=== PATIENT | male | born 1970 | race Caucasian/White ===

== ENCOUNTER 2019-08-29 08:02 | Emergency (ER) | payer OTHER, SELFPAY ==
[2019-08-29 08:13] VITALS: BP 148/85; PULSE 95; RESP 16; TEMP 35.9; O2SAT 99
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
== END 2019-08-29 08:41 | disposition home or self-care (01) ==
PROVIDERS: Emergency Provider Nurse Practitioner Family
DX: S50.11XA Contusion of right forearm, initial encounter (principal); X58.XXXA Exposure to other specified factors, initial encounter; F17.210 Nicotine dependence, cigarettes, uncomplicated
CPT/HCPCS: 99212; G0463

== ENCOUNTER 2024-12-31 08:40 | Emergency (ER) | payer OTHER, SELFPAY ==
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
[2024-12-31 08:46] VITALS: BP 132/91; PULSE 98; RESP 22; TEMP 36.4; O2SAT 100
--- NOTE | 2024-12-31 08:50 | ECG_ITS ---
Test Date: 2024-12-31 08:55:48 Measurements Intervals [place] Rate: 97 P: 56 W[place]: 143 QRS: 32 QRSD: 101 T: 56 QT: 357 QTc: 454 Interpretive Statements SINUS RHYTHM No previous ECG available for comparison Electronically Signed On 12-31-2024 12:52:34 CDT by Charlie Arora M.D.
[2024-12-31 08:57] VITALS: RESP 23
[2024-12-31 09:06] LABS: Hematocrit 44.8 % (42.0-52.0); Hemoglobin 15.4 g/dL (14.0-18.0); Immature Granulocyte Percent A 0.3 % (0-0.5); Lymphocytes Absolute Auto 0.96 K/mm3 (0.9-3.2); Mean Corpuscular HGB Conc 34.4 g/dl (32-36); Mean Corpuscular Hemoglobin 34.1 pg (26-34); Mean Corpuscular Volume 99.3 fl (80-100); Nucleated Red Blood Cells Absolute Auto 0.000 K/mm3 (0.0-0.012); Nucleated Red Blood Cells Perc 0.0 % (0.0-0.2); Platelet Count Result 214 k/mm3 (150-375); Red Blood Count 4.51 M/mm3 (4.6-6.20); White Blood Count 6.5 K/mm3 (4.5-10.0)
[2024-12-31 09:16] LABS: Alanine Aminotransferase 29 U/L (6-50); Albumin Level 4.1 g/dL (3.5-5.1); Alkaline Phosphatase 70 U/L (38-126); Anion Gap 9 mmol/L (4-12); Aspartate Amino Transferase 31 U/L (17-59); Bilirubin,Total 0.5 mg/dL (0.2-1.3); Blood Urea Nitrogen 12 mg/dL (9-20); Calcium 8.9 mg/dL (8.4-10.2); Carbon Dioxide 25 mmol/L (22-30); Chloride 104 mmol/L (98-107); Estimated CRCL calculation 96 ml/min; Estimated Glomerular Filt Rate > 60; Glucose 133 mg/dL (65-110); Potassium 4.2 mmol/L (3.4-5.0); Sodium 138 mmol/L (137-145); Total Protein 7.3 g/dL (6.3-8.2)
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
[2024-12-31 09:42] VITALS: PULSE 84; RESP 20; O2SAT 97
[2024-12-31] MEDS: ACETAMINOPHEN 500 MG TABLET 1000 MG PO (09:53)
[2024-12-31] MEDS: LIDOCAINE 5% PATCH 1 PATCH TRANSDERM (09:55)
[2024-12-31 10:24] VITALS: BP 138/87; PULSE 79; RESP 15; O2SAT 97
[2024-12-31 10:45] LABS: Troponin I < 0.012 ng/mL (0.000-0.034)
== END 2024-12-31 11:48 | disposition home or self-care (01) ==
PROVIDERS: Emergency Medicine; Emergency Provider Physician Assistant
DX: S20.211A Contusion of right front wall of thorax, initial encounter (principal); S12.9XXS Fracture of neck, unspecified, sequela; R06.02 Shortness of breath; Y04.2XXA Assault by strike against or bumped into by another person, initial encounter; F17.210 Nicotine dependence, cigarettes, uncomplicated
CPT/HCPCS: 36415; 70450; 71260; 72125; 72128; 80053; 84484; 85025; 93005; 99284; A9270; Q9967